=== PATIENT | male | born 1995 | race African-American/Black ===

== ENCOUNTER 2023-01-17 06:23 | Emergency (ER) | payer MEDICAID ==
[~2023-01-17] VITALS: Ht 190.5 cm; Wt 68.0 kg
[2023-01-17 06:25] VITALS: BP_SYST 140
--- NOTE | 2023-01-17 06:25 | NUR ---
Patient triaged and placed in waiting room. VSS and patient appears in no acute distress at this time. Accompanied by fam member, awaiting available bed, and MD notified of need for MSE.
--- NOTE | 2023-01-17 06:48 | NUR ---
DR NICKERSON OUT TO TRIAGE ROOM FOR EVALUATION
[2023-01-17] MEDS ORDERED: ASPIRIN 325 MG TABLET ONE (06:52)
[2023-01-17] MEDS ORDERED: ASPIRIN 325 MG TABLET PO ONE (07:00)
[2023-01-17 07:16] LABS: BASOPHILS % (AUTO) 0.9 % (0.0-2.0); EOSINOPHILS # (AUTO) 0.2 K/uL (0.0-0.4); EOSINOPHILS % (AUTO) 2.7 % (0.0-4.0); HEMATOCRIT 43.8 % (36-54); HEMOGLOBIN 14.4 g/dL (14.0-18.0); LYMPHOCYTES # (AUTO) 1.9 K/uL (1.0-5.5); LYMPHOCYTES % (AUTO) 32.7 % (20.5-51.5); MEAN CORPUSCULAR HEMOGLOBIN 30 pg (27-31); MEAN CORPUSCULAR HGB CONC 33 % (32-36); MEAN CORPUSCULAR VOLUME 90 fL (79.0-98.0); MONOCYTES # (AUTO) 0.4 K/uL (0.0-1.0); MONOCYTES % (AUTO) 6.8 % (1.7-9.3); NEUTROPHILS # (AUTO) 3.2 K/uL (1.8-7.7); NEUTROPHILS % (AUTO) 56.9 % (40.0-70.0); PLATELET COUNT (AUTO) 201 K/uL (130-430); RED BLOOD CELL COUNT(AUTO) 4.85 MIL/uL (4.2-6.2); WHITE BLOOD COUNT (AUTO) 5.7 K/uL (4.8-10.8)
[2023-01-17] MEDS ORDERED: MORPHINE 2 MG/ML INJ. SYRINGE IVP ONE (07:30)
[2023-01-17 07:36] LABS: ANION GAP 9 (5-15); CHLORIDE 103 mmol/L (98-107); CREATININE 1.26 mg/dL (0.55-1.30); GFR AFRICAN AMERICAN 88 mL/min (>90); GLUCOSE 86 mg/dL (70-99); UREA NITROGEN, BLOOD 15 mg/dL (8-21)
[2023-01-17 07:41] LABS: ALANINE AMINOTRANSFERASE 43 U/L (12-78); ALBUMIN 4.3 g/dL (3.4-4.8); ASPARTATE AMINOTRANSFERASE 48 U/L (10-37); TOTAL BILIRUBIN 0.7 mg/dL (0.0-1.0)
--- NOTE | 2023-01-17 08:20 | NUR ---
DR NICKERSON OUT TO TRIAGE ROOM FOR RE-EVALUATION
[2023-01-17] MEDS ORDERED: ASPI-858 PO (08:30)
--- NOTE | 2023-01-17 08:36 | NUR ---
Patient given written and verbal discharge instructions and verbalizes understanding. ER MD discussed with patient the results and treatment provided. Patient in stable condition. ID arm band removed. Rx of ASPIRIN given. Patient educated on pain management and to follow up with PMD. Pain Scale 0/10. Opportunity for questions provided and answered. Medication side effect fact sheet provided.
== END 2023-01-17 08:36 | disposition home or self-care (01) ==
LOC: SED 06:23
DX: I31.9 Disease of pericardium, unspecified (principal); R07.89 Other chest pain; Z79.899 Other long term (current) drug therapy
CPT/HCPCS: 36415; 71045; 80053; 83880; 84484; 85025; 93005; 99285

== ENCOUNTER 2023-01-22 09:25 | Emergency (ER) | payer MEDICAID ==
[~2023-01-22] VITALS: Ht 190.5 cm; Wt 68.0 kg
[~2023-01-22 09:25] MED LIST: ASPI-858 PO
[2023-01-22 09:42] VITALS: BP_SYST 126
--- NOTE | 2023-01-22 10:35 | NUR ---
DR MCDONOUGH IN ROOM FR EXAM
[2023-01-22] MEDS ORDERED: CLON1TAB12 PO (10:40)
[2023-01-22] MEDS ORDERED: DOXY100T2 PO (10:40)
[2023-01-22] MEDS: cefTRIAXone 500 MG in LIDOCAINE 1%, 20 ML MDV 1 ML IM ONE (10:58)
--- NOTE | 2023-01-22 10:58 | NUR ---
URINE COLLECTED AND SENT TO LAB
--- NOTE | 2023-01-22 10:59 | NUR ---
PT MEDICATED ORDERED, WILL MONITOR FOR ANY ADVERSE SIDE EFFECT.
[2023-01-22 11:05] VITALS: BP_SYST 126
[2023-01-22 11:12] LABS: BILIRUBIN,URINE 1+ (NEGATIVE); BLOOD, URINE NEGATIVE (NEGATIVE); CLARITY/URINE CLEAR (CLEAR); GLUCOSE,URINE NEGATIVE (NEGATIVE); KETONES,URINE TRACE (NEGATIVE); LEUKOCYTE ESTERASE ,URINE TRACE (NEGATIVE); NITRITE, URINE NEGATIVE (NEGATIVE); PROTEIN URINE 1+ (NEGATIVE)
[2023-01-22 11:19] LABS: COLOR,URINE AMBER (YELLOW)
--- NOTE | 2023-01-22 11:30 | NUR ---
PT NOT IN CHAIR, LEFT WITHOUT DC PAPERS. DR MCDONOUGH INFORMED.
[2023-01-22 11:36] LABS: BACTERIA,URINE RARE /HPF (None Seen); MUCUS,URINE 3+ /LPF (None Seen); RBC,URINE 0-3 /HPF (0-3)
== END 2023-01-22 11:30 | disposition home or self-care (01) ==
LOC: SED 09:25
DX: N34.2 Other urethritis (principal); F41.9 Anxiety disorder, unspecified; A64 Unspecified sexually transmitted disease; Z79.899 Other long term (current) drug therapy
CPT/HCPCS: 99283; 81000; 36415; 96372; 87491; J0696

== ENCOUNTER 2023-03-05 13:19 | Emergency (ER) | payer MEDICAID ==
[~2023-03-05] VITALS: Ht 167.6 cm; Wt 68.0 kg
[~2023-03-05 13:19] MED LIST changes: +CLON1TAB12 PO; +DOXY100T2 PO
--- NOTE | 2023-03-05 13:25 | NUR ---
Pt brought by self , ambulatory, A&Ox4, pt presents to ER with anxiety , states he takes clonopin daily and run out of medications, skin pink and warm, cap refill <3, VSS, respirations even and unlabored, will cont to monitor.
[2023-03-05 13:26] VITALS: BP_SYST 111
--- NOTE | 2023-03-05 13:38 | NUR ---
Dr Ross evaluating patient at this time
[2023-03-05] MEDS ORDERED: clonazePAM 0.5 MG TABLET PO ONE ×2 (13:45→14:00)
[2023-03-05 14:14] VITALS: BP_SYST 111
--- NOTE | 2023-03-05 14:15 | NUR ---
Patient given written and verbal discharge instructions and verbalizes understanding. ER MD discussed with patient the results and treatment provided. Patient in stable condition. ID arm band removed. Rx of Klonopin 1mg PRN given. Patient educated on pain management and to follow up with PMD. Pain Scale 0/10. Opportunity for questions provided and answered. Medication side effect fact sheet provided.
== END 2023-03-05 14:15 | disposition home or self-care (01) ==
LOC: SED 13:19
DX: R00.2 Palpitations (principal); F41.9 Anxiety disorder, unspecified; Z79.899 Other long term (current) drug therapy
CPT/HCPCS: 99283

== ENCOUNTER 2023-03-15 19:41 | Emergency (ER) | payer MEDICAID ==
[~2023-03-15] VITALS: Ht 190.5 cm; Wt 72.6 kg
[2023-03-15 19:54] VITALS: BP_SYST 118
[2023-03-15 20:51] LABS: BASOPHILS % (AUTO) 0.2 % (0.0-2.0); EOSINOPHILS # (AUTO) 0.4 K/uL (0.0-0.4); EOSINOPHILS % (AUTO) 5.1 % (0.0-4.0); HEMATOCRIT 45.2 % (36-54); HEMOGLOBIN 15.2 g/dL (14.0-18.0); LYMPHOCYTES # (AUTO) 0.5 K/uL (1.0-5.5); LYMPHOCYTES % (AUTO) 6.6 % (20.5-51.5); MEAN CORPUSCULAR HEMOGLOBIN 31 pg (27-31); MEAN CORPUSCULAR HGB CONC 34 % (32-36); MEAN CORPUSCULAR VOLUME 92 fL (79.0-98.0); MONOCYTES # (AUTO) 0.9 K/uL (0.0-1.0); MONOCYTES % (AUTO) 12.2 % (1.7-9.3); NEUTROPHILS # (AUTO) 5.6 K/uL (1.8-7.7); NEUTROPHILS % (AUTO) 75.9 % (40.0-70.0); PLATELET COUNT (AUTO) 211 K/uL (130-430); RED CELL DISTRIBUTION WIDTH 12.8 % (9.0-15.0); WHITE BLOOD COUNT (AUTO) 7.4 K/uL (4.8-10.8)
[2023-03-15 20:52] LABS: ALANINE AMINOTRANSFERASE 15 U/L (12-78); ALBUMIN 4.2 g/dL (3.4-4.8); ANION GAP 6 (5-15); ASPARTATE AMINOTRANSFERASE 18 U/L (10-37); CALCIUM 9.3 mg/dL (8.4-11.0); CHLORIDE 100 mmol/L (98-107); CREATININE 1.54 mg/dL (0.55-1.30); GFR AFRICAN AMERICAN 70 mL/min (>90); GLUCOSE 83 mg/dL (70-99); TOTAL BILIRUBIN 0.7 mg/dL (0.0-1.0); UREA NITROGEN, BLOOD 9 mg/dL (8-21)
[2023-03-15] MEDS ORDERED: CLON1TAB12 PO (21:32)
[2023-03-15] MEDS ORDERED: ACET-2634 PO (21:34)
[2023-03-15 21:53] VITALS: BP_SYST 115
== END 2023-03-15 21:53 | disposition home or self-care (01) ==
LOC: SED 19:41
DX: R07.89 Other chest pain (principal); F41.9 Anxiety disorder, unspecified; B34.9 Viral infection, unspecified; N17.9 Acute kidney failure, unspecified; F17.200 Nicotine dependence, unspecified, uncomplicated; Z79.899 Other long term (current) drug therapy
CPT/HCPCS: 36415; 71045; 80053; 84484; 85025; 85379; 93005; 99285

== ENCOUNTER 2023-12-18 09:27 | Emergency (ER) | payer MEDICAID ==
[~2023-12-18] VITALS: Ht 185.4 cm; Wt 86.2 kg
[~2023-12-18 09:27] MED LIST changes: +ACET-2634 PO
[2023-12-18 09:35] VITALS: BP_SYST 137; PULSE 66; RESP 15; TEMP 98; O2SAT 98
[2023-12-18 10:07] LABS: BASOPHILS % (AUTO) 0.5 % (0.0-2.0); EOSINOPHILS # (AUTO) 0.1 K/uL (0.0-0.4); EOSINOPHILS % (AUTO) 2.6 % (0.0-4.0); HEMATOCRIT 41.9 % (36-54); HEMOGLOBIN 14.1 g/dL (14.0-18.0); LYMPHOCYTES # (AUTO) 1.1 K/uL (1.0-5.5); LYMPHOCYTES % (AUTO) 21.7 % (20.5-51.5); MEAN CORPUSCULAR HEMOGLOBIN 31 pg (27-31); MEAN CORPUSCULAR HGB CONC 34 % (32-36); MEAN CORPUSCULAR VOLUME 92 fL (79.0-98.0); MONOCYTES # (AUTO) 0.3 K/uL (0.0-1.0); MONOCYTES % (AUTO) 6.5 % (1.7-9.3); NEUTROPHILS # (AUTO) 3.6 K/uL (1.8-7.7); NEUTROPHILS % (AUTO) 68.7 % (40.0-70.0); PLATELET COUNT (AUTO) 190 K/uL (130-430); RED BLOOD CELL COUNT(AUTO) 4.58 MIL/uL (4.2-6.2); WHITE BLOOD COUNT (AUTO) 5.3 K/uL (4.8-10.8)
[2023-12-18 10:37] LABS: ANION GAP 9 (5-15); CALCIUM 9.2 mg/dL (8.4-11.0); CARBON DIOXIDE 27 mmol/L (23-29); CHLORIDE 103 mmol/L (98-107); CREATININE 1.16 mg/dL (0.55-1.30); GFR AFRICAN AMERICAN 96 mL/min (>90); GLUCOSE 103 mg/dL (74-106); LIPASE 23 U/L (16-77); POTASSIUM 4.7 mmol/L (3.5-5.1); SODIUM SERUM 139 mmol/L (136-145); UREA NITROGEN, BLOOD 12 mg/dL (8-21)
[2023-12-18 10:40] LABS: GFR NON AFRICAN-AMERICAN 79 mL/min (>90)
[2023-12-18 11:50] VITALS: BP_SYST 137; PULSE 70; RESP 14; TEMP 97.7; O2SAT 98
== END 2023-12-18 11:52 | disposition home or self-care (01) ==
LOC: SED 09:27
DX: R07.9 Chest pain, unspecified (principal); M54.6 Pain in thoracic spine; F12.90 Cannabis use, unspecified, uncomplicated; Z79.899 Other long term (current) drug therapy
CPT/HCPCS: 36415; 71045; 80048; 83690; 83880; 84484; 85025; 93005; 99285

== ENCOUNTER 2024-02-05 04:28 | Emergency (ER) | payer MEDICAID ==
[~2024-02-05] VITALS: Ht 190.5 cm; Wt 72.6 kg
[2024-02-05 04:33] VITALS: BP_SYST 133; PULSE 60; RESP 16; TEMP 98.3; O2SAT 98
[2024-02-05 07:26] VITALS: BP_SYST 110; PULSE 58; RESP 20; TEMP 98.2; O2SAT 97
== END 2024-02-05 07:27 | disposition home or self-care (01) ==
LOC: SED 04:28
DX: R07.0 Pain in throat (principal); F41.9 Anxiety disorder, unspecified; Z98.890 Other specified postprocedural states
CPT/HCPCS: 70490; 99284